=== PATIENT | male | born 1940 ===

== ENCOUNTER 2017-07-07 10:59 | Emergency (ER) | payer OTHER ==
[~2017-07-07] VITALS: Ht 172.7 cm; Wt 120.7 kg
[~2017-07-07 10:59] MED LIST: TRAM1TAB98 PO
[2017-07-07] MEDS ORDERED: TAMS0.4C PO (11:34)
[2017-07-07] MEDS ORDERED: SYNTHROID125 MCG PO (11:35)
[2017-07-07] MEDS ORDERED: HYDROCHLOROTH12.5 M1 PO (11:35)
== END 2017-07-07 15:24 | disposition home or self-care (01) ==
LOC: ER 10:59 → EDBD 12:34 → ER 15:24
DX: L03.115 Cellulitis of right lower limb (principal); L03.116 Cellulitis of left lower limb

== ENCOUNTER 2018-04-09 08:59 | Inpatient (IN) | payer OTHER ==
[~2018-04-09] VITALS: Ht 167.6 cm; Wt 127.0 kg
[~2018-04-09 08:59] MED LIST changes: +HYDROCHLOROTH12.5 M1 PO; +SYNTHROID125 MCG PO; +TAMS0.4C PO
[2018-04-09] MEDS ORDERED: ASPIR 8181 MG (09:09)
[2018-04-09] MEDS ORDERED: BUCALSEP SPRAY30 ML (09:09)
[2018-04-09] MEDS ORDERED: SIMVASTATIN10 MG (09:09)
[2018-04-09] MEDS ORDERED: ISOSORBIDE DINI30 MG (09:10)
== END 2018-04-19 17:57 | disposition home or self-care (01) | DRG 194 ==
LOC: ER 08:59 → SURH 04-10 09:19
PROC: BW24ZZZ Computerized Tomography (CT Scan) of Chest and Abdomen (ICD-10-PCS; principal; 2018-04-10)
PROC: 8E0ZXY6 Isolation (ICD-10-PCS; 2018-04-10)
PROC: 3E0F7GC Introduction of Other Therapeutic Substance into Respiratory Tract, Via Natural or Artificial Opening (ICD-10-PCS; 2018-04-11)
PROC: 02HV33Z Insertion of Infusion Device into Superior Vena Cava, Percutaneous Approach (ICD-10-PCS; 2018-04-13)
DX: J18.0 Bronchopneumonia, unspecified organism (principal); R04.2 Hemoptysis; B37.0 Candidal stomatitis; J45.41 Moderate persistent asthma with (acute) exacerbation